=== PATIENT | female | born 1990 | race African-American/Black ===

== ENCOUNTER 2021-04-16 10:16 | Emergency (ER) | payer OTHER ==
[~2021-04-16] VITALS: Ht 144.8 cm; Wt 56.7 kg
[2021-04-16 10:28] VITALS: BP 104/61
[2021-04-16 10:38] VITALS: BP 104/61
[2021-04-16] MEDS ORDERED: NS 1000ML 1,000 ML IV STA (11:19)
[2021-04-16] MEDS ORDERED: NS 1000ML 1,000 ML ONE (11:26)
--- NOTE | 2021-04-16 11:32 | ER.PDOC ---
General Chief Complaint: Earache Stated Complaint: EARACHE,SORE THROAT Time seen by MD: 11:30 Source: patient Exam Limitations: no limitations History of Present Illness Initial Comments Sore throat, earache, feeling weak, may have passed out but she is not very sure and she denies chest pain or shortness of breath. Timing/Duration: gradual Associated Symptoms: mod sore throat, earache (R), earache (L) Severity: moderate Past Medical History Medical History: asthma Surgical History: no surgical history Family History Significant Family History: no pertinent family hx Social History Alcohol Use: occassionally Drug Use: none Constitutional: no symptoms reported Ears: see HPI Nose: no symptoms reported Mouth: no symptoms reported Throat: see HPI Respiratory: no symptoms reported Cardiovascular: no symptoms reported Gastrointestinal: no symptoms reported All Other Systems: Reviewed and Negative Physical Exam General Appearance: alert, no distress Head/Neck: head nml inspection, neck nml inspection, trachea midline, no lymphadenopathy, thyroid nml Eyes: eyes nml inspection, PERRL, no nystagmus Mouth: lips, gums nml, no drooling, no thrush, membranes nml Throat: voice nml, no airway problems, pharyngeal erythema Ears/Nose: nml inspection Respiratory: no resp. distress, lungs clear CVS: reg. rate & rhythm, heart sounds nml Abdomen: non-tender, no organomegaly Extremities: non-tender, ROM nml Skin Exam: Normal Color, Warm/Dry NEURO/PSYCH: oriented X3, mood/effect nml Results/Orders Results/Orders Orders - JOSE HERNANDEZ MD Cbc With Auto Diff (04/16/21 11:19) Comprehensive Metabolic Panel (04/16/21 11:19) Ct Head Wo Contrast (04/16/21 11:19) Troponin I (04/16/21 11:19) Ekg-Routine (04/16/21 11:19) 0.9 % Sodium Chloride (Ns 1000ml) (04/16/21 11:19) Hcg Qualitative Serum (04/16/21 11:19) 0.9 % Sodium Chloride (Ns 1000ml) (04/16/21 11:26) Covid19 Antigen Deanna Cinthya (04/16/21 11:54) Ondansetron Hcl/Pf (Zofran) (04/16/21 12:00) Ondansetron Hcl/Pf (Zofran) (04/16/21 12:14) Strep Screen (04/16/21 12:22) Vital Signs Date Time Temp Pulse Resp B/P (MAP) Pulse Ox O2 Delivery O2 Flow Rate FiO2 04/16/21 10:38 97.9 88 18 98 04/16/21 10:38 97.9 88 18 04/16/21 10:28 97.9 88 18 104/61 (75) 97 Room Air Administered Medications Medications (Trade) Dose Ordered Sig/Breanne Route PRN Reason Start Time Stop Time Status Last Admin Dose Admin Ondansetron HCl (Zofran) 4 mg STAT STAT IV 04/16/21 12:00 04/16/21 12:01 DC 04/16/21 12:14 4 MG Sodium Chloride 1,000 ml @ 1,200 mls/hr Q50M STAT IV 04/16/21 11:19 04/16/21 12:08 DC 04/16/21 12:00 1,200 MLS/HR Laboratory Tests Test 04/16/21 11:27 04/16/21 11:30 White Blood Count 10.7 10^3/uL (4.5-11.0) Red Blood Count 4.53 10^6/uL (4.00-5.20) Hemoglobin 10.3 g/dL (12.0-15.0) L Hematocrit 31.8 % (36.0-46.0) L Mean Corpuscular Volume 70.2 fL (78-100) L Mean Corpuscular Hemoglobin 22.7 pg (26-34) L Mean Corpuscular Hemoglobin Concent 32.4 g/dL (33-36.5) L Red Cell Distribution Width 14.3 % (11.5-14.5) Platelet Count 295 10^3/uL (150-400) Mean Platelet Volume 9.6 fL (7.8-11.0) Neutrophils (%) (Auto) 90.9 % (41.0-85.0) *H Lymphocytes (%) (Auto) 3.6 % (24.0-44.0) *L Monocytes (%) (Auto) 4.8 % (5.0-12.0) L Neutrophils # (Auto) 9.7 10^3/uL (1.8-7.7) H Lymphocytes # (Auto) 0.39 10^3/uL1 (1.0-4.8) L Monocytes # (Auto) 0.5 10^3/uL (0.3-0.8) Absolute Immature Granulocyte (auto 0.06 10^3 u/L (0-2) Absolute Eosinophils (auto) 0.0 10^3/uL (0.0-0.2) Immature Granulocytes % 0.60 % (0.00-0.50) H Eosinophils % 0.0 % (0.0-5.0) Basophils % 0.1 % (0.0-0.2) Basophils # 0.0 10^3/uL (0.0-0.1) Sodium Level 134 mmol/L (132-145) Potassium Level 3.1 mmol/L (3.6-5.2) L Chloride Level 97.0 mmol/L (96-109) Carbon Dioxide Level 25.4 mmol/L (20.0-32) Anion Gap 14.7 Blood Urea Nitrogen 9 mg/dL (7-18) Creatinine 0.81 mg/dL (0.59-1.40) Estimated GFR () 99.8 (>/=60) Est GFR (CKD-EPI)(Non-Afr Macedonian) 82.5 (>/=60) BUN/Creatinine Ratio 11.0 Glucose Level 143 mg/dL (70-110) H Calcium Level 8.7 mg/dL (8.4-10.5) Total Bilirubin 0.6 mg/dL (0.2-1.0) Aspartate Amino Transferase (AST) 67 U/L (0-35) H Alanine Aminotransferase (ALT) 44 U/L (12-78) Alkaline Phosphatase 176 U/L (50-136) H Troponin I < 0.02 ng/mL (0.00-0.05) Total Protein 7.4 g/dL (6.4-8.2) Albumin 2.6 g/dL (3.4-5.0) L Globulin 4.8 Albumin/Globulin Ratio 0.541 Serum HCG, Qualitative NEGATIVE (NEGATIVE) SARS-CoV-2 Antigen (Rapid) NEGATIVE (NEGATIVE) Group A Streptococcus Screen NEGATIVE (NEGATIVE) Progress Progress WBC is normal, head CT shows no acute intracranial abnormality. WBC is normal, potassium is 3.1, glucose 143 and AST is 67. Patient is feeling better after hydration with 1L NS. Even though her strep is normal, her throat looks red and erythematous so I will treat with amoxicillin for a week. Reviewed results with the patient and she voices understanding. EKG/XRAY/CT/US EKG: NSR, no ST T wave changes EKG Comments: HR 79, normal P axis ER DEPART Departure Time of Disposition: 12:47 Disposition: 01 HOME / SELF CARE / HOMELESS Impression: Primary Impression: Acute pharyngitis Qualified Codes: J02.9 - Acute pharyngitis, unspecified Additional Impressions: Vasovagal episode Dehydration Condition: Improved Referrals: PCP,UNKNOWN (PCP) PRIMARY CARE PROVIDER Additional Instructions: Amoxil Chloraseptic spray [id number] as directed Push fluids Follow-up with your PCP in 2 to 3 days Return to ED if worsening symptoms or concerns Duration or Time Spent with Pa: 30 min JOSE HERNANDEZ MD Apr 16, 2021 11:32
[2021-04-16 11:36] LABS: BASOPHIL % 0.1 % (0.0-0.2); LYMPHOCYTES # 0.39 10^3/uL1 (1.0-4.8); LYMPHOCYTES % 3.6 % (24.0-44.0); MEAN CORP HGB 22.7 pg (26-34); MONOCYTES # 0.5 10^3/uL (0.3-0.8); MONOCYTES % 4.8 % (5.0-12.0); NEUTROPHIL # 9.7 10^3/uL (1.8-7.7); NEUTROPHILS % 90.9 % (41.0-85.0); PLATELET COUNT 295 10^3/uL (150-400); RED CELL DISTRIBUTION WIDTH 14.3 % (11.5-14.5)
--- NOTE | 2021-04-16 11:58 | PCM.EKG ---
[facility] Test Date: 2021-04-16 Test Time: 11:53:11 Pat Name: GAYLE HUNTER Department: Room: Gender: F Mortgage Collector: MATTHEW : 1990 Requested By: JOSE HERNANDEZ Order Number: [id number] Reading MD: Jose HERNANDEZ Measurements Intervals Brandon Rate: 79 P: 253 [place]: 115 QRS: 46 QRSD: 79 T: 9 QT: 353 QTc: 405 Interpretive Statements Ectopic atrial rhythm Borderline short [place] interval No previous ECG available for comparison Electronically Signed On 04-18-2021 10:54:27 CDT by Jose HERNANDEZ Please click the below link to view image of tracing.
[2021-04-16 12:00] VITALS: BP 109/65
[2021-04-16] MEDS ORDERED: ZOFRAN IV STA (12:00)
[2021-04-16 12:01] LABS: ALANINE AMINOTRANSFERASE(ML) 44 U/L (12-78); ALKALINE PHOSPHATASE 176 U/L (50-136); ASPARTATE AMINO TRANSFERASE 67 U/L (0-35); CALCIUM 8.7 mg/dL (8.4-10.5); CARBON DIOXIDE 25.4 mmol/L (20.0-32); GLUCOSE 143 mg/dL (70-110)
[2021-04-16] MEDS ORDERED: ZOFRAN ONE (12:14)
--- NOTE | 2021-04-16 12:32 | DIREP ---
PROCEDURE:CT HEAD OR BRAIN W/O CONTRAST COMPARISON:None. INDICATIONS:Syncope TECHNIQUE:CT images were created without intravenous contrast. FINDINGS: VENTRICLES:The ventricles are normal in size and configuration. CEREBRUM:Normal cerebral morphology with appropriate bustillo white matter differentiation. CEREBELLUM:Negative. BRAINSTEM:Negative. BASAL CISTERNS:Negative. HEMORRHAGE:No MASS LESION:No ACUTE INFARCT:No SKULL:Normal. SINUSES:Normal. OTHER:None CONCLUSION:No acute intracranial process Dictated by: John Herzog DO on 04/16/2021 at 12:16 PM
[2021-04-16 13:30] VITALS: BP 107/58
[2021-04-16 20:32] LABS: BAND NEUTROPHILS 9 % (2-6); BASOPHIL 1 % (0-2); EOSINOPHIL 0 % (1-4); LYMPHOCYTE 3 % (25-36); MONOCYTE 6 % (3-9); SEGMENTED NEUTROPHILS 81 % (31-76)
[2021-04-16 20:34] LABS: MICROCYTOSIS 1+ (NEGATIVE)
== END 2021-04-16 13:30 | disposition home or self-care (01) ==
LOC: ER 10:16
DX: J45.909 Unspecified asthma, uncomplicated (principal); E86.0 Dehydration; Z79.899 Other long term (current) drug therapy; Z20.822 Contact with and (suspected) exposure to COVID-19
CPT/HCPCS: 36415; 70450; 80053; 84484; 84703; 85025; 87070; 87426; 87880; 93005; 96361; 96374; 99285; J2405; J7030